=== PATIENT | male | born 1940 | race Caucasian/White ===

== ENCOUNTER 2017-08-29 07:33 | Inpatient (IN) | payer MEDICARE, OTHER ==
[~2017-08-29] VITALS: Ht 180.3 cm; Wt 124.0 kg
[~2017-08-29 07:33] MED LIST: ALBUTEROL SUL0.083 % IN; ALLOPURINOL300 MG PO; AMOX/K CLAV875 M1 PO; AUGMENTIN875TAB PO; CIPROFLOXACN500 MG PO; DOXYCYCL HYC100 MG PO; FLONASE NASAL50 MCG; FLORASTOR250 M1 PO; KEFLEX500 MG PO; LEVAQUIN750 MG PO; LISINOPRIL/HYDR1 TA1 OR; MEDDOSEPAK OR; METFORMIN500 MG PO; MUCINEX600 MG PO; PREDNISONE20 MG PO; PREVACID30 M1; PROVENTIL IN; ROCEPHIN 1 GM1 G1 IM; ROCEPHIN 2250 MG/VIA IM; TAMSULOSIN HCL0.4 MG PO; TESSALON PER100 MG PO; ZITHROMAX500 MG PO; [UNRECOGNIZED DRUG - MIXTURE]
[2017-08-29] MEDS ORDERED: TYLENOL # 31 TAB PO (07:57)
[2017-08-29] MEDS ORDERED: ALBUTEROL SUL0.083 % IN (07:57)
[2017-08-29] MEDS ORDERED: LEVAQUIN750 MG PO (07:57)
[2017-08-29] MEDS ORDERED: PREDNISONE50 MG PO (07:57)
[2017-08-29 09:30] LABS: HEMATOCRIT 48.8 % (39.0-50.0); HEMOGLOBIN 16.5 g/dl (14.0-18.0); IMMATURE GRANULOCYTES 0.8 % (0.0-1.0); MEAN CELL VOLUME 94.6 fL CALC (80.0-100.0); MEAN CORPUSCULAR HGB CONC 33.8 g/L CALC (32.0-36.0); NEUT# 11.91 thou/uL (1.82-7.42); RED BLOOD COUNT 5.16 mill/uL (4.70-6.10); RED CELL DISTRI WIDTH 13.5 % (11.5-15.5)
[2017-08-29 09:48] LABS: ALBUMIN 4.6 g/dL (3.2-5.0); ALKALINE PHOSPHATASE 80 u/l (38-126); ANION GAP 17 (6-22 (CALC)); BILIRUBIN, TOTAL 0.7 mg/dL (0.0-1.4); BUN 14 mg/dL (8-23); BUN/CREATININE RATIO 12 (12-20 (CALC)); CALCIUM 9.4 mg/dL (8.4-10.2); CARBON DIOXIDE 24 mmol/l (22-30); CHLORIDE 103 mmol/l (95-108); CREATININE 1.1 mg/dL (0.7-1.3); GFR > 60 ML/MIN (>=60 (CALC)); GFR FOR AFR.AMER. > 60 ML/MIN (>=60 (CALC)); GLUCOSE 145 mg/dL (82-115); POTASSIUM 3.8 mmol/l (3.5-5.1); SGOT/AST 21 u/l (19-48); SGPT/ALT 27 u/l (11-66); SODIUM 141 mmol/l (137-146); TOTAL PROTEIN 7.7 g/dL (6.3-8.2)
[2017-08-29 10:00] LABS: MYOGLOBIN 126 ng/mL (0 - 121)
[2017-08-29 12:05] VITALS: BP 160/85
[2017-08-29 15:25] VITALS: BP 137/83
[2017-08-29 17:34] LABS: CHOLESTEROL HDL RATIO 3.1 (<4.4 (CALC))
[2017-08-29 18:30] VITALS: BP 153/78
[2017-08-30 00:29] VITALS: BP 90/53
[2017-08-30 05:14] VITALS: BP 135/78
[2017-08-30 05:57] LABS: HEMATOCRIT 46.5 % (39.0-50.0); HEMOGLOBIN 15.5 g/dl (14.0-18.0); IMMATURE GRANULOCYTES 1.2 % (0.0-1.0); MEAN CELL VOLUME 94.9 fL CALC (80.0-100.0); MEAN CORPUSCULAR HGB 31.6 pG CALC (26.0-32.0); MEAN CORPUSCULAR HGB CONC 33.3 g/L CALC (32.0-36.0); NEUT# 11.87 thou/uL (1.82-7.42); RED BLOOD COUNT 4.9 mill/uL (4.70-6.10); RED CELL DISTRI WIDTH 13.7 % (11.5-15.5)
[2017-08-30 06:07] LABS: ANION GAP 20 (6-22 (CALC)); BUN 29 mg/dL (8-23); BUN/CREATININE RATIO 24 (12-20 (CALC)); CALCIUM 9.3 mg/dL (8.4-10.2); CARBON DIOXIDE 22 mmol/l (22-30); CHLORIDE 104 mmol/l (95-108); CREATININE 1.2 mg/dL (0.7-1.3); GFR 59 ML/MIN (>=60 (CALC)); GFR FOR AFR.AMER. > 60 ML/MIN (>=60 (CALC)); GLUCOSE 173 mg/dL (82-115); MAGNESIUM 2.2 mg/dL (1.6-2.3); POTASSIUM 4.3 mmol/l (3.5-5.1); SODIUM 141 mmol/l (137-146)
[2017-08-30 07:13] LABS: URINE BILIRUBIN - DIPSTICK NEGATIVE (NEGATIVE); URINE BLOOD DIPSTICK NEGATIVE (NEGATIVE); URINE COLOR YELLOW; URINE GLUCOSE - DIPSTICK NEGATIVE (NEGATIVE); URINE KETONE NEGATIVE (NEGATIVE); URINE LEUK ESTERASE NEGATIVE (NEGATIVE); URINE NITRITE - DIPSTICK NEGATIVE (Negative); URINE PROTEIN - DIPSTICK NEGATIVE (NEG-TRACE); URINE SPECIFIC GRAVITY 1.015; URINE UROBILINOGEN - DIPSTICK 0.2 E.U./dL (0.2)
[2017-08-30 07:15] LABS: URINE CLARITY SL CLOUDY
[2017-08-30 07:54] VITALS: BP 140/69
[2017-08-30 11:13] VITALS: BP 127/61
[2017-08-30 16:00] VITALS: BP 147/65
[2017-08-30 18:00] VITALS: BP 112/65
[2017-08-31] VITALS (8 sets, daily range): BP systolic 85–132; BP diastolic 37–80
[2017-08-31 05:47] LABS: CALCIUM 8.8 mg/dL (8.4-10.2); CREATININE 1.8 mg/dL (0.7-1.3); HEMATOCRIT 44.9 % (39.0-50.0); HEMOGLOBIN 14.8 g/dl (14.0-18.0); MAGNESIUM 2.5 mg/dL (1.6-2.3); MEAN CELL VOLUME 96.4 fL CALC (80.0-100.0); MEAN CORPUSCULAR HGB 31.8 pG CALC (26.0-32.0); NEUT# 13.39 thou/uL (1.82-7.42); POTASSIUM 4.4 mmol/l (3.5-5.1); RED BLOOD COUNT 4.66 mill/uL (4.70-6.10); RED CELL DISTRI WIDTH 13.9 % (11.5-15.5)
[2017-09-01 05:00] VITALS: BP 148/75
[2017-09-01 07:10] LABS: HEMATOCRIT 44.4 % (39.0-50.0); HEMOGLOBIN 14.6 g/dl (14.0-18.0); MEAN CELL VOLUME 95.3 fL CALC (80.0-100.0); MEAN CORPUSCULAR HGB 31.3 pG CALC (26.0-32.0); MEAN CORPUSCULAR HGB CONC 32.9 g/L CALC (32.0-36.0); RED BLOOD COUNT 4.66 mill/uL (4.70-6.10); RED CELL DISTRI WIDTH 14.1 % (11.5-15.5)
[2017-09-01 07:12] LABS: CALCIUM 8.7 mg/dL (8.4-10.2); CREATININE 1.4 mg/dL (0.7-1.3); POTASSIUM 4.7 mmol/l (3.5-5.1)
[2017-09-01 07:22] VITALS: BP 129/69
[2017-09-01 11:30] VITALS: BP 109/58
[2017-09-01] MEDS ORDERED: ROBITUSSIN AC10 ML PO (13:42)
[2017-09-01] MEDS ORDERED: VANTIN200 M1 PO (13:42)
[2017-09-01] MEDS ORDERED: IPRATROPIU0.5 MG/3 M NEB (13:42)
[2017-09-01] MEDS ORDERED: PREDNISONE10 MG PO (13:44)
== END 2017-09-01 15:40 | disposition home or self-care (01) | DRG 191 ==
LOC: ED 07:33 → ED-I 09:59 → MS2 10:53 → ED 10:53 → MS2 09-01 15:40
PROVIDERS: Emergency Medicine; Nurse Practitioner Family; ADMIT Internal Medicine; ATTEND Internal Medicine
PROC: 3E0234Z Introduction of Serum, Toxoid and Vaccine into Muscle, Percutaneous Approach (ICD-10-PCS; principal; 2017-08-30)
DX: J44.1 Chronic obstructive pulmonary disease with (acute) exacerbation (principal); N17.9 Acute kidney failure, unspecified; E11.8 Type 2 diabetes mellitus with unspecified complications; I10 Essential (primary) hypertension; J44.0 Chronic obstructive pulmonary disease with (acute) lower respiratory infection; J20.9 Acute bronchitis, unspecified; R09.02 Hypoxemia; R59.0 Localized enlarged lymph nodes; K21.9 Gastro-esophageal reflux disease without esophagitis; Z85.46 Personal history of malignant neoplasm of prostate; Z87.891 Personal history of nicotine dependence; Z23 Encounter for immunization; Z68.38 Body mass index [BMI] 38.0-38.9, adult; Z79.84 Long term (current) use of oral hypoglycemic drugs
CPT/HCPCS: J1650

== ENCOUNTER 2017-11-13 08:42 | Inpatient (IN) | payer MEDICARE, OTHER ==
[~2017-11-13] VITALS: Ht 180.3 cm; Wt 124.5 kg
[~2017-11-13 08:42] MED LIST changes: +IPRATROPIU0.5 MG/3 M NEB; +PREDNISONE10 MG PO; +PREDNISONE50 MG PO; +ROBITUSSIN AC10 ML PO; +TYLENOL # 31 TAB PO; +VANTIN200 M1 PO
[2017-11-13 09:38] LABS: HEMATOCRIT 51.3 % (39.0-50.0); HEMOGLOBIN 16.7 g/dl (14.0-18.0); IMMATURE GRANULOCYTES 0.7 % (0.0-1.0); MEAN CELL VOLUME 96.1 fL CALC (80.0-100.0); MEAN CORPUSCULAR HGB 31.3 pG CALC (26.0-32.0); MEAN CORPUSCULAR HGB CONC 32.6 g/L CALC (32.0-36.0); NEUT# 5.5 thou/uL (1.82-7.42); RED BLOOD COUNT 5.34 mill/uL (4.70-6.10); RED CELL DISTRI WIDTH 15.3 % (11.5-15.5)
[2017-11-13 09:57] LABS: ALKALINE PHOSPHATASE 67 u/l (38-126); ANION GAP 20 (6-22 (CALC)); BUN 25 mg/dL (8-23); BUN/CREATININE RATIO 21 (12-20 (CALC)); CARBON DIOXIDE 26 mmol/l (22-30); CHLORIDE 101 mmol/l (95-108); CREATININE 1.2 mg/dL (0.7-1.3); GFR 59 ML/MIN (>=60 (CALC)); GFR FOR AFR.AMER. > 60 ML/MIN (>=60 (CALC)); POTASSIUM 3.9 mmol/l (3.5-5.1); SGPT/ALT 55 u/l (11-66); SODIUM 143 mmol/l (137-146); TOTAL PROTEIN 6.8 g/dL (6.3-8.2)
[2017-11-13 10:05] LABS: ALBUMIN 4.4 g/dL (3.2-5.0); BILIRUBIN, TOTAL 0.4 mg/dL (0.0-1.4); SGOT/AST 53 u/l (19-48)
[2017-11-13 12:40] VITALS: BP 144/86
[2017-11-13 16:00] VITALS: BP 133/89
[2017-11-13 17:28] LABS: CHOLESTEROL HDL RATIO 4.1 (<4.4 (CALC))
[2017-11-13 20:30] VITALS: BP 129/70
[2017-11-14 04:36] VITALS: BP 131/80
[2017-11-14 05:25] LABS: HEMATOCRIT 47.6 % (39.0-50.0); HEMOGLOBIN 15.5 g/dl (14.0-18.0); IMMATURE GRANULOCYTES 0.7 % (0.0-1.0); MEAN CELL VOLUME 96.6 fL CALC (80.0-100.0); MEAN CORPUSCULAR HGB 31.4 pG CALC (26.0-32.0); MEAN CORPUSCULAR HGB CONC 32.6 g/L CALC (32.0-36.0); NEUT# 5.2 thou/uL (1.82-7.42); RED BLOOD COUNT 4.93 mill/uL (4.70-6.10); RED CELL DISTRI WIDTH 14.9 % (11.5-15.5)
[2017-11-14 05:49] LABS: ANION GAP 18 (6-22 (CALC)); BUN 23 mg/dL (8-23); BUN/CREATININE RATIO 22 (12-20 (CALC)); CARBON DIOXIDE 26 mmol/l (22-30); CHLORIDE 103 mmol/l (95-108); CREATININE 1.1 mg/dL (0.7-1.3); GFR > 60 ML/MIN (>=60 (CALC)); GFR FOR AFR.AMER. > 60 ML/MIN (>=60 (CALC)); MAGNESIUM 2.1 mg/dL (1.6-2.3); POTASSIUM 4.2 mmol/l (3.5-5.1); SODIUM 143 mmol/l (137-146)
[2017-11-14 07:50] VITALS: BP 136/79
[2017-11-14 15:57] VITALS: BP 128/77
[2017-11-14 19:30] VITALS: BP 132/74
[2017-11-15 05:25] LABS: HEMATOCRIT 47.2 % (39.0-50.0); HEMOGLOBIN 15.5 g/dl (14.0-18.0); MEAN CELL VOLUME 95.9 fL CALC (80.0-100.0); MEAN CORPUSCULAR HGB 31.5 pG CALC (26.0-32.0); MEAN CORPUSCULAR HGB CONC 32.8 g/L CALC (32.0-36.0); RED BLOOD COUNT 4.92 mill/uL (4.70-6.10); RED CELL DISTRI WIDTH 14.9 % (11.5-15.5)
[2017-11-15 05:32] VITALS: BP 146/82
[2017-11-15 05:52] LABS: ANION GAP 19 (6-22 (CALC)); BUN 30 mg/dL (8-23); BUN/CREATININE RATIO 27 (12-20 (CALC)); CARBON DIOXIDE 25 mmol/l (22-30); CHLORIDE 102 mmol/l (95-108); CREATININE 1.1 mg/dL (0.7-1.3); GFR > 60 ML/MIN (>=60 (CALC)); GFR FOR AFR.AMER. > 60 ML/MIN (>=60 (CALC)); MAGNESIUM 2.2 mg/dL (1.6-2.3); POTASSIUM 4.6 mmol/l (3.5-5.1); SODIUM 141 mmol/l (137-146)
[2017-11-15 07:46] VITALS: BP 130/80
[2017-11-15 11:00] VITALS: BP 110/72
[2017-11-15 15:35] VITALS: BP 125/72
[2017-11-15 19:00] VITALS: BP 118/70
[2017-11-16 04:50] VITALS: BP 138/79
[2017-11-16 05:31] LABS: HEMATOCRIT 46.1 % (39.0-50.0); HEMOGLOBIN 15.3 g/dl (14.0-18.0); MEAN CELL VOLUME 95.8 fL CALC (80.0-100.0); MEAN CORPUSCULAR HGB 31.8 pG CALC (26.0-32.0); MEAN CORPUSCULAR HGB CONC 33.2 g/L CALC (32.0-36.0); RED BLOOD COUNT 4.81 mill/uL (4.70-6.10)
[2017-11-16 05:42] LABS: ANION GAP 17 (6-22 (CALC)); BUN 30 mg/dL (8-23); BUN/CREATININE RATIO 27 (12-20 (CALC)); CARBON DIOXIDE 25 mmol/l (22-30); CHLORIDE 102 mmol/l (95-108); CREATININE 1.1 mg/dL (0.7-1.3); GFR > 60 ML/MIN (>=60 (CALC)); GFR FOR AFR.AMER. > 60 ML/MIN (>=60 (CALC)); MAGNESIUM 2.4 mg/dL (1.6-2.3); POTASSIUM 4.6 mmol/l (3.5-5.1); SODIUM 139 mmol/l (137-146)
[2017-11-16 08:00] VITALS: BP 138/90
[2017-11-16 09:09] VITALS: BP 138/90
[2017-11-16] MEDS ORDERED: PREDNISONE10 MG PO (12:48)
[2017-11-16] MEDS ORDERED: ROBITUSSIN AC10 ML PO (12:48)
[2017-11-16] MEDS ORDERED: FLONASE AL50 MCG/ACT NAB (12:48)
[2017-11-16] MEDS ORDERED: LEVAQUIN750 MG PO (12:48)
[2017-11-16] MEDS ORDERED: SINGULAIR10 MG PO (12:48)
[2017-11-16] MEDS ORDERED: ZYRTEC10 MG PO (12:48)
[2017-11-16] MEDS ORDERED: LOSARTAN POT50 MG PO (12:48)
== END 2017-11-16 13:53 | disposition home or self-care (01) | DRG 190 ==
LOC: ED 08:42 → ED-I 10:37 → ED 10:59 → MS2 11:00
PROVIDERS: Family Medicine; Nurse Practitioner Family; ADMIT Internal Medicine; ATTEND Internal Medicine
DX: J44.0 Chronic obstructive pulmonary disease with (acute) lower respiratory infection (principal); J18.9 Pneumonia, unspecified organism; E11.9 Type 2 diabetes mellitus without complications; E86.0 Dehydration; J44.1 Chronic obstructive pulmonary disease with (acute) exacerbation; I10 Essential (primary) hypertension; K21.9 Gastro-esophageal reflux disease without esophagitis; J30.2 Other seasonal allergic rhinitis; Z85.46 Personal history of malignant neoplasm of prostate; Z92.3 Personal history of irradiation; Z79.84 Long term (current) use of oral hypoglycemic drugs; Z87.891 Personal history of nicotine dependence; Z68.38 Body mass index [BMI] 38.0-38.9, adult
CPT/HCPCS: J0692; S0164

== ENCOUNTER → 2018-11-01 | Outpatient (REF) | payer MEDICARE ==
[~2018-11-01] MED LIST changes: +FLONASE AL50 MCG/ACT NAB; +LOSARTAN POT50 MG PO; +SINGULAIR10 MG PO; +ZYRTEC10 MG PO
== END | disposition home or self-care (01) ==
LOC: CT 08:49
PROVIDERS: ATTEND Internal Medicine Pulmonary Disease
DX: R05 Cough (principal); J47.9 Bronchiectasis, uncomplicated